=== PATIENT | male | born 1975 | race Hispanic/Latino ===

== ENCOUNTER 2022-03-17 19:07 | Inpatient (IN) | payer SELFPAY ==
[~2022-03-17] VITALS: Ht 157.5 cm; Wt 86.0 kg
[2022-03-17 19:12] VITALS: BP 110/74
[2022-03-17 19:16] VITALS: BP 48/32
[2022-03-17 19:30] VITALS: BP 107/77
[2022-03-17 20:15] LABS: URINE BILIRUBIN - DIPSTICK NEGATIVE (NEGATIVE); URINE BLOOD DIPSTICK SMALL (NEGATIVE); URINE COLOR YELLOW; URINE GLUCOSE - DIPSTICK NEGATIVE (NEGATIVE); URINE KETONE NEGATIVE (NEGATIVE); URINE LEUK ESTERASE NEGATIVE (NEGATIVE); URINE PROTEIN - DIPSTICK NEGATIVE (NEG-TRACE); URINE UROBILINOGEN - DIPSTICK 0.2 E.U./dL (0.2)
[2022-03-17 20:15] LABS: BASO% 0.5 % (0-3); EOS% 1.4 % (0-8); HEMATOCRIT 41.2 % (39.0-50.0); IMMATURE GRANULOCYTES 0.1 % (0.0-5.0); LYMPH% 21.8 % (15-41); MEAN CELL VOLUME 89.6 fL CALC (80.0-100.0); MEAN CORPUSCULAR HGB 30.4 pG CALC (26.0-32.0); MONO% 5.6 % (2-13); NEUT# 7.51 thou/uL (1.82-7.42); NEUT% 70.6 % (42-76); RED BLOOD COUNT 4.6 mill/uL (4.70-6.10)
[2022-03-17 20:17] LABS: URINE NITRITE - DIPSTICK NEGATIVE (Negative)
[2022-03-17 20:23] LABS: ALBUMIN 4.5 g/dL (3.2-5.0); ALKALINE PHOSPHATASE 89 u/l (38-126); ANION GAP 11 (6-22 (CALC)); BILIRUBIN, TOTAL 0.4 mg/dL (0.0-1.4); BUN 16 mg/dL (9-20); BUN/CREATININE RATIO 20 (12-20 (CALC)); CARBON DIOXIDE 26 mmol/l (22-30); CHLORIDE 106 mmol/l (95-108); CREATININE 0.8 mg/dL (0.7-1.3); GFR FOR AFR.AMER. > 60 ML/MIN (>=60 (CALC)); GFR OTHER RACES > 60 ML/MIN (>=60 (CALC)); POTASSIUM 3.8 mmol/l (3.5-5.1); SGOT/AST 28 u/l (17-59); SODIUM 139 mmol/l (137-146); TOTAL PROTEIN 7.3 g/dL (6.3-8.2)
[2022-03-17 20:24] LABS: URINE WBC 0-2 WBC/hpf (0-5)
[2022-03-18] VITALS (10 sets, daily range): BP systolic 99–140; BP diastolic 62–88
[2022-03-18 06:23] LABS: BASO% 0.2 % (0-3); HEMATOCRIT 45.4 % (39.0-50.0); HEMOGLOBIN 15.7 g/dl (14.0-18.0); IMMATURE GRANULOCYTES 0.2 % (0.0-5.0); LYMPH% 4.2 % (15-41); MEAN CELL VOLUME 89.7 fL CALC (80.0-100.0); MEAN CORPUSCULAR HGB CONC 34.6 g/dL CAL (32.0-36.0); NEUT% 90.4 % (42-76); RED BLOOD COUNT 5.06 mill/uL (4.70-6.10); RED CELL DISTRI WIDTH 13.2 % (11.5-15.5)
[2022-03-18 06:33] LABS: ALKALINE PHOSPHATASE 72 u/l (38-126); ANION GAP 11 (6-22 (CALC)); BUN 16 mg/dL (9-20); BUN/CREATININE RATIO 20 (12-20 (CALC)); CARBON DIOXIDE 23 mmol/l (22-30); CHLORIDE 106 mmol/l (95-108); CREATININE 0.8 mg/dL (0.7-1.3); GFR FOR AFR.AMER. > 60 ML/MIN (>=60 (CALC)); GFR OTHER RACES > 60 ML/MIN (>=60 (CALC)); POTASSIUM 3.2 mmol/l (3.5-5.1); SGOT/AST 30 u/l (17-59); SODIUM 136 mmol/l (137-146); TOTAL PROTEIN 6.8 g/dL (6.3-8.2)
[2022-03-19] VITALS (9 sets, daily range): BP systolic 100–118; BP diastolic 56–87
[2022-03-19 05:55] LABS: BASO% 0.2 % (0-3); EOS% 0.1 % (0-8); IMMATURE GRANULOCYTES 0.2 % (0.0-5.0); LYMPH% 6.6 % (15-41); MEAN CELL VOLUME 90.3 fL CALC (80.0-100.0); MEAN CORPUSCULAR HGB 30.9 pG CALC (26.0-32.0); MEAN CORPUSCULAR HGB CONC 34.2 g/dL CAL (32.0-36.0); MONO% 2.6 % (2-13); NEUT# 13.81 thou/uL (1.82-7.42); NEUT% 90.3 % (42-76); RED BLOOD COUNT 4.04 mill/uL (4.70-6.10); RED CELL DISTRI WIDTH 13.7 % (11.5-15.5)
[2022-03-19 06:05] LABS: HEMATOCRIT 36.5 % (39.0-50.0); HEMOGLOBIN 12.5 g/dl (14.0-18.0)
[2022-03-19 06:12] LABS: ALKALINE PHOSPHATASE 66 u/l (38-126); ANION GAP 6 (6-22 (CALC)); BILIRUBIN, TOTAL 0.6 mg/dL (0.0-1.4); BUN 17 mg/dL (9-20); BUN/CREATININE RATIO 20 (12-20 (CALC)); CARBON DIOXIDE 26 mmol/l (22-30); CHLORIDE 108 mmol/l (95-108); CREATININE 0.8 mg/dL (0.7-1.3); GFR FOR AFR.AMER. > 60 ML/MIN (>=60 (CALC)); GFR OTHER RACES > 60 ML/MIN (>=60 (CALC)); POTASSIUM 3.3 mmol/l (3.5-5.1); SGOT/AST 21 u/l (17-59); SODIUM 137 mmol/l (137-146); TOTAL PROTEIN 5.6 g/dL (6.3-8.2)
[2022-03-19 06:17] LABS: ALBUMIN 3.1 g/dL (3.2-5.0)
[2022-03-20] VITALS (13 sets, daily range): BP systolic 98–146; BP diastolic 57–88
[2022-03-20 04:41] LABS: BASO% 0.3 % (0-3); EOS% 0.7 % (0-8); HEMATOCRIT 32.4 % (39.0-50.0); HEMOGLOBIN 11.1 g/dl (14.0-18.0); IMMATURE GRANULOCYTES 0.7 % (0.0-5.0); MEAN CELL VOLUME 90.8 fL CALC (80.0-100.0); MEAN CORPUSCULAR HGB 31.1 pG CALC (26.0-32.0); MEAN CORPUSCULAR HGB CONC 34.3 g/dL CAL (32.0-36.0); MONO% 2.2 % (2-13); NEUT# 8.34 thou/uL (1.82-7.42); NEUT% 85.1 % (42-76); RED BLOOD COUNT 3.57 mill/uL (4.70-6.10)
[2022-03-20 05:01] LABS: ALKALINE PHOSPHATASE 64 u/l (38-126); ANION GAP 4 (6-22 (CALC)); BUN 12 mg/dL (9-20); BUN/CREATININE RATIO 15 (12-20 (CALC)); CARBON DIOXIDE 26 mmol/l (22-30); CHLORIDE 107 mmol/l (95-108); CREATININE 0.8 mg/dL (0.7-1.3); GFR FOR AFR.AMER. > 60 ML/MIN (>=60 (CALC)); GFR OTHER RACES > 60 ML/MIN (>=60 (CALC)); POTASSIUM 3.6 mmol/l (3.5-5.1); SGOT/AST 19 u/l (17-59); SODIUM 134 mmol/l (137-146); TOTAL PROTEIN 4.6 g/dL (6.3-8.2)
[2022-03-20 05:06] LABS: ALBUMIN 2.4 g/dL (3.2-5.0); BILIRUBIN, TOTAL 0.2 mg/dL (0.0-1.4)
[2022-03-21 00:42] VITALS: BP 116/64
[2022-03-21 04:15] VITALS: BP 144/81
[2022-03-21 07:08] VITALS: BP 132/75
[2022-03-21 11:04] VITALS: BP 132/85
[2022-03-21 15:11] VITALS: BP 139/90
[2022-03-21 18:42] VITALS: BP 153/91
[2022-03-22 00:05] VITALS: BP 125/73
[2022-03-22 04:00] VITALS: BP 124/75
[2022-03-22 04:39] VITALS: BP 124/75
[2022-03-22 06:46] VITALS: BP 124/76
[2022-03-22 16:02] VITALS: BP 132/84
[2022-03-22 19:27] VITALS: BP 115/76
[2022-03-23 00:02] VITALS: BP 109/66
[2022-03-23 03:48] VITALS: BP 117/77
[2022-03-23 05:29] LABS: BASO% 0.6 % (0-3); EOS% 4.4 % (0-8); HEMOGLOBIN 12.6 g/dl (14.0-18.0); MEAN CELL VOLUME 89.4 fL CALC (80.0-100.0); MEAN CORPUSCULAR HGB 30.4 pG CALC (26.0-32.0); MEAN CORPUSCULAR HGB CONC 34.1 g/dL CAL (32.0-36.0); MONO% 10.5 % (2-13); NEUT# 4.69 thou/uL (1.82-7.42); NEUT% 55.1 % (42-76); RED BLOOD COUNT 4.14 mill/uL (4.70-6.10); RED CELL DISTRI WIDTH 13.5 % (11.5-15.5)
[2022-03-23 05:51] LABS: ANION GAP 10 (6-22 (CALC)); BUN 8 mg/dL (9-20); BUN/CREATININE RATIO 12 (12-20 (CALC)); CARBON DIOXIDE 24 mmol/l (22-30); CHLORIDE 105 mmol/l (95-108); CREATININE 0.7 mg/dL (0.7-1.3); GFR FOR AFR.AMER. > 60 ML/MIN (>=60 (CALC)); GFR OTHER RACES > 60 ML/MIN (>=60 (CALC)); POTASSIUM 4.1 mmol/l (3.5-5.1); SODIUM 134 mmol/l (137-146)
[2022-03-23 05:59] LABS: IMMATURE GRANULOCYTES 4.4 % (0.0-5.0)
[2022-03-23 06:40] VITALS: BP 117/79
[2022-03-23 19:45] VITALS: BP 140/83
[2022-03-24 04:18] VITALS: BP 111/67
[2022-03-24 06:38] VITALS: BP 124/72
[2022-03-24 07:10] VITALS: BP 124/72
[2022-03-24 15:13] VITALS: BP 120/79
[2022-03-24 18:51] VITALS: BP 128/87
[2022-03-25 03:25] VITALS: BP 110/76
[2022-03-25 06:14] LABS: BASO% 0.6 % (0-3); EOS% 4.3 % (0-8); HEMATOCRIT 37.7 % (39.0-50.0); HEMOGLOBIN 12.8 g/dl (14.0-18.0); IMMATURE GRANULOCYTES 5.8 % (0.0-5.0); LYMPH% 27.5 % (15-41); MEAN CELL VOLUME 89.1 fL CALC (80.0-100.0); MEAN CORPUSCULAR HGB 30.3 pG CALC (26.0-32.0); MONO% 8.2 % (2-13); NEUT# 5.45 thou/uL (1.82-7.42); NEUT% 53.6 % (42-76); RED BLOOD COUNT 4.23 mill/uL (4.70-6.10); RED CELL DISTRI WIDTH 13.8 % (11.5-15.5)
[2022-03-25 06:33] VITALS: BP 115/74
[2022-03-25 16:40] VITALS: BP 117/72
[2022-03-25 18:55] VITALS: BP 137/81
[2022-03-26 04:17] VITALS: BP 134/66
[2022-03-26 04:43] VITALS: BP 134/66
[2022-03-26 07:32] VITALS: BP 115/59
[2022-03-26 14:47] VITALS: BP 129/65
[2022-03-26 19:44] VITALS: BP 112/63
[2022-03-27 04:12] VITALS: BP 112/66
[2022-03-27 07:08] VITALS: BP 109/66
[2022-03-27] MEDS ORDERED: PERCOCET 5/325M1 TAB PO (08:49)
[2022-03-27] MEDS ORDERED: BACTRIM DS1 TAB PO (08:50)
[2022-03-27 09:35] VITALS: BP 98/59
[2022-03-30] MEDS ORDERED: PERCOCET 5/325M1 TAB PO (11:58)
[2022-04-01] MEDS ORDERED: PERCOCET 5/325M1 TAB PO (08:59)
[2022-04-02] MEDS ORDERED: AMOX/K CLAV875 M1 PO (12:40)
== END 2022-03-27 15:27 | DRG 854 ==
LOC: ED 19:07 → MS2 20:33 → ED 20:40 → MS2 03-18 13:42
PROVIDERS: Family Medicine; Nurse Practitioner Family; ADMIT Internal Medicine; ATTEND Surgery
PROC: 0VQ5XZZ Repair Scrotum, External Approach (ICD-10-PCS; principal; 2022-03-17)
PROC: 0VJD0ZZ Inspection of Testis, Open Approach (ICD-10-PCS; 2022-03-18)
PROC: 0DJDXZZ Inspection of Lower Intestinal Tract, External Approach (ICD-10-PCS; 2022-03-18)
PROC: 0D1N0Z4 Bypass Sigmoid Colon to Cutaneous, Open Approach (ICD-10-PCS; 2022-03-19)
PROC: 0JDB3ZZ Extraction of Perineum Subcutaneous Tissue and Fascia, Percutaneous Approach (ICD-10-PCS; 2022-03-19)
PROC: 3E1N78Z Irrigation of Male Reproductive using Irrigating Substance, Via Natural or Artificial Opening (ICD-10-PCS; 2022-03-19)
PROC: 0DJD8ZZ Inspection of Lower Intestinal Tract, Via Natural or Artificial Opening Endoscopic (ICD-10-PCS; 2022-03-19)
PROC: 0DQP8ZZ Repair Rectum, Via Natural or Artificial Opening Endoscopic (ICD-10-PCS; 2022-03-20)
PROC: 3E1N78Z Irrigation of Male Reproductive using Irrigating Substance, Via Natural or Artificial Opening (ICD-10-PCS; 2022-03-20)
DX: A41.9 Sepsis, unspecified organism (principal); S36.63XA Laceration of rectum, initial encounter; R65.20 Severe sepsis without septic shock; S31.31XA Laceration without foreign body of scrotum and testes, initial encounter; N49.2 Inflammatory disorders of scrotum; F17.200 Nicotine dependence, unspecified, uncomplicated; F15.129 Other stimulant abuse with intoxication, unspecified; V13.4XXA Pedal cycle driver injured in collision with car, pick-up truck or van in traffic accident, initial encounter; B95.2 Enterococcus as the cause of diseases classified elsewhere; Z20.822 Contact with and (suspected) exposure to COVID-19
CPT/HCPCS: J0131; J3370

== ENCOUNTER 2022-04-24 11:31 | Emergency (ER) | payer SELFPAY ==
[2022-04-24] VITALS (27 sets, daily range): BP systolic 65–143; BP diastolic 43–92
[~2022-04-24] VITALS: Ht 157.5 cm; Wt 100.0 kg
[~2022-04-24 11:31] MED LIST: AMOX/K CLAV875 M1 PO; BACTRIM DS1 TAB PO; PERCOCET 5/325M1 TAB PO; TRAMADOL HCL50 MG PO
[2022-04-24 12:49] LABS: ALKALINE PHOSPHATASE 74 u/l (38-126); ANION GAP 14 (6-22 (CALC)); BUN 16 mg/dL (9-20); BUN/CREATININE RATIO 19 (12-20 (CALC)); CARBON DIOXIDE 26 mmol/l (22-30); CHLORIDE 98 mmol/l (95-108); CREATININE 0.8 mg/dL (0.7-1.3); EOS% 0.6 % (0-8); GFR FOR AFR.AMER. > 60 ML/MIN (>=60 (CALC)); GFR OTHER RACES > 60 ML/MIN (>=60 (CALC)); HEMOGLOBIN 14.4 g/dl (14.0-18.0); IMMATURE GRANULOCYTES 0.5 % (0.0-5.0); LIPASE 25 u/l (23-300); LYMPH% 11.2 % (15-41); MEAN CELL VOLUME 89.9 fL CALC (80.0-100.0); MEAN CORPUSCULAR HGB 28.6 pG CALC (26.0-32.0); MEAN CORPUSCULAR HGB CONC 31.9 g/dL CAL (32.0-36.0); MONO% 3.3 % (2-13); NEUT# 7.97 thou/uL (1.82-7.42); NEUT% 83.4 % (42-76); POTASSIUM 4.1 mmol/l (3.5-5.1); RED BLOOD COUNT 5.03 mill/uL (4.70-6.10); RED CELL DISTRI WIDTH 13.9 % (11.5-15.5); SODIUM 134 mmol/l (137-146)
[2022-04-24 12:50] LABS: HEMATOCRIT 45.2 % (39.0-50.0)
[2022-04-24 13:15] LABS: ALBUMIN 4.9 g/dL (3.2-5.0); SGOT/AST 45 u/l (17-59); TOTAL PROTEIN 7.9 g/dL (6.3-8.2)
== END 2022-04-24 19:15 | disposition short-term general hospital (02) | DRG 392 ==
LOC: ED 11:31
PROVIDERS: Family Medicine
DX: R10.2 Pelvic and perineal pain (principal); N45.4 Abscess of epididymis or testis; Z93.3 Colostomy status
CPT/HCPCS: Q9967

== ENCOUNTER 2022-06-18 18:38 | Inpatient (IN) | payer SELFPAY ==
[~2022-06-18] VITALS: Ht 152.4 cm; Wt 81.6 kg
[~2022-06-18 18:38] MED LIST changes: +PERCOCET1 TA4 PO
[2022-06-23] VITALS (15 sets, daily range): BP systolic 122–153; BP diastolic 77–89
--- NOTE | 2022-06-23 14:20 | NUR ---
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 PT HAS IV SITE LAC WITH LR RUNNING, WILL CHANGE TO D5 W1/2 NS WHEN COMPLETE. DRESSING TO ABD ABD SCROTUN INTACT AND CLEAN AT THIS TIME. WHALEN PATENT AND DRAINING CLEAR, YELLOW URINE AT THIS TIME. PT C/O PAIN AT 10/10 AT INCISION SITES, MEDICATED WITH PRN PAIN MEDICATIONS. SCD'S TO BILAT LOWER EXTREMITIES. OTHER THAN INCISION SITES PT SKIN IS INTACT. PT ORIENTED TO ROON AND CALL LIGHT. VS NORMAL AND WILL CONTINUE EVERY 15 MINUTES. PT HAS CALL LIGHT WITHIN REACH AND SAFETY MEASURES IN PLACE.
--- NOTE | 2022-06-23 16:19 | NUR ---
PT RESTING ALERT AND ORIENTED X 3, C/O PAIN AT ABD ABD SCROTAL INCISION SITE AT 10/10 ON PAIN SCALE, MEDICATED WITH PRN PAIN MEDICATIONS. IV FLUIDS CHANGED TO D5 1/2 NS @ 125 ML/HR. WHALEN CONTINUES TO DRAIN CLEAR, YELLOW URINE. DRESSING TO ABD AND SCROTUM CLEAN. CALL LIGHT WITHIN REACH WILL CONTINUE TO MONITOR PT AND REASSESS FOR PAIN. VS STABLE.
--- NOTE | 2022-06-23 19:54 | NUR ---
RECEIVED BEDSIDE REPORT. PT LYING IN BED WITH SCD'S ON. IV INFUSING. WHALEN CATH DRAINING CLEAR YELLOW URINE. DSG TO ABDOMEN AND SCROTUM INTACT. NO DRAINAGE NOTED . ON TELEMETRY NSR.ALERT SAND OREINTED. CALL LIGHT IN REACH
--- NOTE | 2022-06-23 23:51 | NUR ---
SCROTAL SURGICAL SITE PACKING IS PINK DRAINING MODERATE AMT WITH CLOTS ON GAUZE AND ABD DRESSINGS COVERING SCROTAL PACKING. DRY GAUZE AND ABD PADS CHANGED. ABDOMEN DSG IS DRY AND INTACT. C/O ABDOMINAL DISCOMFORT. PASSING FLATUS. MEDICATED FOR PAIN ORDERED WITH FAIR EFFECT.
[2022-06-24 00:25] VITALS: BP 127/78
--- NOTE | 2022-06-24 02:01 | NUR ---
PT REQUESTING PAIN MEDICATION FOR ABDOMINAL DISCOMFORT. ALL PAIN MEDS GIVEN ORDERED WITH FAIR EFFECT. SCROTAL WOUND DRAING MOD AMT PINK BLOODY DRAINAGE WITH FORMED CLOTS. ABD DSGS CHANGED NEEDED. SCROTAL PACKING IS INTACT. ABDOMINAL DSG DRY AND INTACT. WHALEN CATH DRAINING YELLOW URINE. IV FLUIDS INFSUING ORDERED. SLEEPING IN NAPS. VSS CALL LIGHT IN REACH
[2022-06-24 04:27] VITALS: BP 115/77
[2022-06-24 05:35] LABS: BASO% 0.8 % (0-3); EOS% 4.3 % (0-8); IMMATURE GRANULOCYTES 0.4 % (0.0-5.0); LYMPH% 21.4 % (15-41); MEAN CELL VOLUME 93.2 fL CALC (80.0-100.0); MEAN CORPUSCULAR HGB 28.5 pG CALC (26.0-32.0); MEAN CORPUSCULAR HGB CONC 30.6 g/dL CAL (32.0-36.0); MONO% 7.3 % (2-13); NEUT# 4.71 thou/uL (1.82-7.42); NEUT% 65.8 % (42-76); RED BLOOD COUNT 3.68 mill/uL (4.70-6.10); RED CELL DISTRI WIDTH 15.2 % (11.5-15.5)
[2022-06-24 05:47] LABS: HEMATOCRIT 34.3 % (39.0-50.0); HEMOGLOBIN 10.5 g/dl (14.0-18.0)
[2022-06-24 05:56] LABS: ALKALINE PHOSPHATASE 58 u/l (38-126); ANION GAP 7 (6-22 (CALC)); BILIRUBIN, TOTAL 0.6 mg/dL (0.2-1.3); BUN 11 mg/dL (9-20); BUN/CREATININE RATIO 16 (12-20 (CALC)); CARBON DIOXIDE 29 mmol/l (22-30); CHLORIDE 103 mmol/l (95-108); CREATININE 0.7 mg/dL (0.7-1.3); GFR FOR AFR.AMER. > 60 ML/MIN (>=60 (CALC)); GFR OTHER RACES > 60 ML/MIN (>=60 (CALC)); POTASSIUM 3.7 mmol/l (3.5-5.1); SGOT/AST 41 u/l (17-59); SODIUM 135 mmol/l (137-146)
[2022-06-24 05:57] LABS: ALBUMIN 3.4 g/dL (3.2-5.0); TOTAL PROTEIN 5.8 g/dL (6.3-8.2)
[2022-06-24 07:05] VITALS: BP 106/66
--- NOTE | 2022-06-24 08:00 | NUR ---
PT IN BED RESTING ALERT AND ORIENTED X 3, PT HAS C/O PAIN AT 8/10 ON PAIN SCALE AT THIS TIME, WILL MEDICATE WITH PRN PAIN MEDS. PT HAS IV TO LAC CLEAN AND INTACT WITH D5 1/2 NS @ 125 ML/HR INFUSING. WHALEN CATH INTACT DRAINING CLEAR, YELLOW URINE. INCISION SITE TO ABD CLEAN AND INTACT, NO DRAINAGE NOTED TO DRESSING. SCROTAL DRESSING INTACT WITH MINIMAL AMOUNT OF DRAINAGE. PT HAS CALL LIGHT WITHIN REACH AND SAFETY MEASURES IN PLACE.
--- NOTE | 2022-06-24 12:00 | NUR ---
PT LAYING IN BED RESTING C/O PAIN AT 8/10 ON PAIN SCALE. MEDICATIONS FOR PAIN GIVEN. INCISION SITE CLEAN AND INTACT. WHALEN CATH IN PLACE AND IV PATENT. CALL LIGHT WITHIN REACH. WILL CONTINUE TO MONITOR PT AND REASSESS PAIN.
[2022-06-24 15:24] VITALS: BP 107/64
--- NOTE | 2022-06-24 16:00 | NUR ---
PT LAYING IN BED, RESTING ALERT AND ORIENTED. PT C/O PAIN AT 8/10 ON PAIN SCALE, WILL MEDICATE WITH PRN PAIN MEDS WHEN DUE. PT CONTINUES TO HAVE IV FLUIDS RUNNING. WHALEN CATH PATENT WITH CLEAR, YELLOW URINE IN BAG. CALL LIGHT WITHIN REACH.
[2022-06-24 19:06] VITALS: BP 112/64
--- NOTE | 2022-06-24 19:43 | NUR ---
BEDISDE REPORT RECEIVED FROM OFF GOING NURSE. PATIENT AWAKE AND ALERT. DENIES PAIN OR DISCOMFORT AT THIS TIME. HEAD TO TOE ASSESSMENT COMPLETED. NO CONCERNS VOICED AT THIS TIME. CALL LIGHT WITHIN REACH.
--- NOTE | 2022-06-24 23:04 | NUR ---
PATIENT RESTING IN BED WITH EYES CLOSED. CALL LIGHT WITHIN REACH. RESPIRATIONS EVEN AND UNLABORED.
--- NOTE | 2022-06-25 03:53 | NUR ---
PATIENT REQUESTING PAIN MEDICATION R/T ABDOMINAL PAIN. REPOSITIONED TO PROVIDE COMFORT. JELLO PROVIDED PER PATIENT REQUEST. CALL LIGHT WITHIN REACH.
[2022-06-25 04:59] VITALS: BP 120/67
--- NOTE | 2022-06-25 06:32 | NUR ---
PATIENT AWAKE AND ALERT. ABD PAD CHANGED TO SCROTUM AND PATIENT REPOSITIONED. MEDICATED FOR PAIN. CALL LIGHT AND PERSONALITEMS WITHIN REACH.
[2022-06-25 06:35] VITALS: BP 110/63
--- NOTE | 2022-06-25 08:00 | NUR ---
rcd report from nightshift. pt is in bed resting. pt is post op, per nightshift dressings were recently changed, will discuss with md about dressing changes. mcdonald in place with great urine output. a&ox3 on ra. pt denies any complaints at this time.
--- NOTE | 2022-06-25 09:00 | NUR ---
reeducated by md on dressing changes for pt. 3x day, wet to dry gauze with an abd over for both abdominal and scrotum.
--- NOTE | 2022-06-25 09:20 | NUR ---
dressing change is complete for abdominal and scrotum
[2022-06-25 10:00] VITALS: BP 136/77
[2022-06-25 10:18] VITALS: BP 136/77
--- NOTE | 2022-06-25 12:33 | NUR ---
PT ISIN BED AND BATHED. PT FINISHED LUNCH. PT IS RESTING AND NOT IN ANY PAIN AT THE MOMENT. NO OTHER CHANGE IN STATUS.
[2022-06-25 14:22] VITALS: BP 138/81
--- NOTE | 2022-06-25 16:00 | NUR ---
PT RESTING IN BED. NO CHANGE IN STATUS.
--- NOTE | 2022-06-25 16:23 | NUR ---
dressing change #2 done
[2022-06-25 18:53] VITALS: BP 125/76
--- NOTE | 2022-06-25 19:12 | NUR ---
PATIENT RESTING IN BED. ALERT AND ORIENTED. ABLE TO MAKE NEEDS KNOWN. ASSESSMENT COMPLETE. DRESSING TO PREVIOUS COLOSTOMY SITE CDI. DRESSING TO SCROTAL AREA APPEARS CDI. NO DISTRESS NOTED. PATIENT AWARE OF PRN PAIN MEDICATION AVAILABLE WHEN NEEDED. VOIDING WITHOUT DIFFICULTY. BED REMAINS IN LOW POSITION. CALL RAYMOND AND BELONGINGS WITHIN REACH.
--- NOTE | 2022-06-25 23:50 | NUR ---
DRESSING CHANGED TO PREVIOUS COLOSTOMY SITE INCISION. SITE APPEARS CLEAN AND DRY. NO DRAINAGE. SUTURES INTACT. NO REDNESS. DRESSING ALSO CHANGE TO SCROTUM AREA. MINIMAL BLOOD TINGED DRAINAGE TO PREVIOUS GAUZE. SITE APPEARS CLEAN. PATIENT TOLERATED WELL. NEW DRESSING APPLIED DIRECTED. PATIENT WAS MEDICATED FOR PAIN PRIOR TO DRESSING CHANGES,
[2022-06-26 03:12] VITALS: BP 140/84
--- NOTE | 2022-06-26 03:29 | NUR ---
PATIENT RESTING IN BED WITH HOB SLIGHTLY ELEVATED. NO DISTRESS NOTED. COMPLAINTS OF PAIN TO SCROTUM AREA. PRN PAIN MEDICATION GIVEN PER PATIENT REQUEST. BED REMAINS IN LOW POSITION. CALL RAYOMND AND BELONGINGS IN REACH.
[2022-06-26 03:56] VITALS: BP 140/84
[2022-06-26 06:39] VITALS: BP 117/68
[2022-06-26 09:23] LABS: HEMATOCRIT 31.4 % (39.0-50.0); HEMOGLOBIN 10.2 g/dl (14.0-18.0); MEAN CORPUSCULAR HGB 29.2 pG CALC (26.0-32.0); MEAN CORPUSCULAR HGB CONC 32.5 g/dL CAL (32.0-36.0); RED BLOOD COUNT 3.49 mill/uL (4.70-6.10); RED CELL DISTRI WIDTH 14.3 % (11.5-15.5)
[2022-06-26 09:26] LABS: ANION GAP 10 (6-22 (CALC)); BUN 9 mg/dL (9-20); BUN/CREATININE RATIO 13 (12-20 (CALC)); CARBON DIOXIDE 25 mmol/l (22-30); CHLORIDE 103 mmol/l (95-108); CREATININE 0.7 mg/dL (0.7-1.3); GFR FOR AFR.AMER. > 60 ML/MIN (>=60 (CALC)); GFR OTHER RACES > 60 ML/MIN (>=60 (CALC)); POTASSIUM 3.9 mmol/l (3.5-5.1); SODIUM 133 mmol/l (137-146)
--- NOTE | 2022-06-26 10:30 | NUR ---
PATIENT ABDONINAL DRESSING CHANGED. SCANT AMOUNT OF BLOOD AND YELLOW DRAINAGE NOTE. SCROTAL DRESSING CHANGED AT THIS TIME WEE, MODERATE AMOUNT OF SEROSANGUIOUS DRAINAGE NITED. WET TO DRY DRESSING APPLYIED WITH ABD.
[2022-06-26 10:52] VITALS: BP 99/67
--- NOTE | 2022-06-26 12:00 | NUR ---
PAIN CONTROLED WITH DILAUDID AND PERCOCET, PATIENT EDUCATED ON DEEEP BREATHING EXERCISES, SAFETY MEASURES IN PLACE.
[2022-06-26 14:45] VITALS: BP 131/83
--- NOTE | 2022-06-26 16:26 | NUR ---
DRESSING CHANGED, SCROTAL WOUND PACKED WITH WET GAUZE COVERED WITH DRY GAUZE AND A ABD, PATIENT TOLERATED WELL, ABDOMNAL DRESSING CHANGED WELL AFTER SHOWER. SAFETY MEASURES IN PLACE.
[2022-06-26 19:19] VITALS: BP 130/76
--- NOTE | 2022-06-26 19:24 | NUR ---
PATIENT RESTING IN BED. ALERT AND ABLE TO MAKE NEEDS KNOWN. PLEASANT. COOPERATIVE WITH CARE. ASSESSMENT COMPLETE. DRESSINGS TO LEFT PREVIOUS COLOSTOMY SITE AND SCROTUM APPEAR CDI. NO DISTRESS NOTED. PATIENT HAS INTERMITTENT PAIN. PRN PAIN MEDICATION BEING UTILIZED PRESCRIBED IN EMAR. BED REMAINS IN LOW POSITION. CALL RAYMOND AND BELONGINGS IN REACH.
--- NOTE | 2022-06-26 21:00 | NUR ---
SCROTUM DRESSING CHANGE DONE PER SURGEONS ORDERS. WET TO DRY DRESSING. MINIMAL BLOOD TINGED DRAINAGE. PATIENT WAS PRE MEDICATED WITH PAIN MEDICATION PRIOR. TOLERATED DRESSING CHANGE VERY WELL.
--- NOTE | 2022-06-27 01:15 | NUR ---
DRESSING CHANGED TO PREVIOUS COLOSTOMY SITE. SITE APPEARS CLEAN DRY AND INTACT. NO REDNESS OR DRAINAGE. PATIENT TOLERATED WELL.
[2022-06-27 06:55] VITALS: BP 113/65
--- NOTE | 2022-06-27 10:00 | NUR ---
PATIENT'S DRESSING CHANGED. LLQ INCISION CLEANED PLACED DRY ABD DRESSING. SCROTUM WOUND CLEANED PACKED WET TO DRY DRESSING WITH ABD DRESSING AND NEW DISPOSABLE UNDERWEAR PROVIDED.
[2022-06-27 10:30] VITALS: BP 110/69
[2022-06-27] MEDS ORDERED: PERCOCET 5/325M1 TAB PO (13:09)
--- NOTE | 2022-06-27 14:42 | NUR ---
Discharge instructions given. Patient verbalizes understanding of same. Discharged in stable condition via Wheelchair to Home with friend. All belongings sent with pt. Pt was provided with some wound care supplies to help until he gets some.
[2022-06-27 15:21] VITALS: BP 146/82
== END 2022-06-27 14:44 | disposition home or self-care (01) | DRG 346 ==
LOC: OR 06-23 09:25 → MS2 06-23 09:43
PROVIDERS: ADMIT Surgery; ATTEND Surgery
PROC: 0DSN0ZZ Reposition Sigmoid Colon, Open Approach (ICD-10-PCS; principal; 2022-06-23)
PROC: 0H89XZZ Division of Perineum Skin, External Approach (ICD-10-PCS; 2022-06-23)
DX: Z43.3 Encounter for attention to colostomy (principal); N50.89 Other specified disorders of the male genital organs; F17.210 Nicotine dependence, cigarettes, uncomplicated; S36 Injury of intra-abdominal organs; S31.3 Open wound of scrotum and testes; X58.XXXS Exposure to other specified factors, sequela
CPT/HCPCS: J0131; J0690